=== PATIENT | female | born 1980 | race African-American/Black ===

== ENCOUNTER 2023-04-07 10:00 | Outpatient (CLI) | payer OTHER | END 2023-04-07 10:15 | disposition home or self-care (01) | LOC: LAB.N 10:00 | PROVIDERS: ATTEND Nurse Practitioner | DX: R30.0 Dysuria (principal) | CPT/HCPCS: 87077; 87086; 87181 ==

== ENCOUNTER 2023-06-16 08:00 | Outpatient (CLI) | payer OTHER | END 2023-06-16 23:59 | disposition home or self-care (01) | LOC: LAB.N 08:00 | PROVIDERS: ATTEND Specialist | DX: N39.0 Urinary tract infection, site not specified (principal) | CPT/HCPCS: 87077; 87086; 87181 ==

== ENCOUNTER 2023-12-24 09:35 | Outpatient (CLI) | payer OTHER | END 2023-12-24 18:37 | disposition home or self-care (01) | LOC: LAB.N 09:35 | PROVIDERS: ATTEND Family Medicine | DX: N39.0 Urinary tract infection, site not specified (principal) | CPT/HCPCS: 87086 ==